=== PATIENT | male | born 1970 | race Caucasian/White ===

== ENCOUNTER 2017-03-19 21:06 | Emergency (ER) | payer OTHER, SELFPAY ==
[2017-03-19] MEDS ORDERED: Sodium Chloride 0.9% 1,000 ML ONE ×2 (21:49→22:30)
[2017-03-19] MEDS ORDERED: Ondansetron HCl/PF 4 MG/2 ML Vial ONE (21:49)
[2017-03-19 22:01] LABS: #Basophils 0.1 thou/uL (0.0-0.2); #Lymphocytes 1.4 thou/uL (1.20-3.40); #Monocytes 0.9 thou/uL (0.11-0.59); #Neutrophils 11.9 thou/uL (1.40-6.50); %Basophils 0.6 % (0.0-1.0); %Eosinophils 0.2 % (0.0-10.0); %Lymphocytes 9.9 % (21.0-51.0); %Monocytes 6.4 % (0.0-10.0); %Neutrophils 82.9 % (42.0-75.0); Hemoglobin 15.5 g/dL (14.0-18.0); Mean Corpuscular HGB CONC 36.5 g/dL (32.0-36.0); Mean Platelet Volume 6.3 fL (7.4-10.4); Platelet Count 274 thou/uL (130-400); RBC Distribution Width 10.7 % (11.5-14.5); Red Blood Cell (RBC) Count 5.01 mill/uL (4.70-6.10); White Blood Cell (WBC) Count 14.3 thou/uL (4.8-10.8)
[2017-03-19 22:03] LABS: ALT (SGPT) 136 U/L (8-55); AST (SGOT) 135 U/L (5-34); Albumin 4.2 g/dL (3.5-5.0); Alkaline Phosphatase 84 U/L (40-150); Anion Gap 21 mmol/L (10-20); BUN (Urea Nitrogen) 5 mg/dL (8.9-20.6); Bilirubin, Total 0.7 mg/dL (0.2-1.2); CK (CPK) 439 U/L (30-200); Calc. Creatinine Clearance 0 mL/min (70-130); Calcium 8.5 mg/dL (7.8-10.44); Carbon Dioxide 23 mmol/L (22-29); Estimated GFR-MDRD Greater than 90; Globulin 3.1 g/dL (2.4-3.5); Glucose 101 mg/dL (70-105); Magnesium 2.1 mg/dL (1.6-2.6); Protein, Total 7.3 g/dL (6.0-8.3)
[2017-03-19 22:04] LABS: Acetaminophen Less than 6.0 mcg/mL (10.0-30.0); Alcohol 170 mg/dL (Less than 10); Salicylate Less than 8.0 mg/dL (15.0-30.0)
[2017-03-19 22:06] LABS: Troponin I 0.015 ng/mL (< 0.028)
[2017-03-19 22:20] LABS: CKMB 9.5 ng/mL (0-6.6); Chloride 67 mmol/L (98-107); Potassium 2.8 mmol/L (3.5-5.1); Sodium 108 mmol/L (136-145)
[2017-03-19] MEDS ORDERED: Potassium Chloride 20 MEQ TAB ONE (22:30)
[2017-03-19 22:42] LABS: Bilirubin Negative (Negative); Blood, Urine Trace (Negative); Clarity Clear (Clear); Glucose, Urine (Dipstick) Negative (Negative); Leukocyte Negative (Negative); Nitrite Negative (Negative); Protein, Urine (Dipstick) Negative (Neg-Trace); Specific Gravity, Urine 1.015 (1.005-1.030); Urobilinogen 0.2 mg/dL (0.2-1.0)
[2017-03-19] MEDS ORDERED: Potassium Chloride 20 MEQ/100 ML PREMIX BAG ONE (22:46)
[2017-03-19 22:48] LABS: Bacteria/HPF None Seen HPF (None Seen); RBC/HPF 0-3 HPF (0-3); Squamous Epithelial None Seen HPF (0-3); WBC/HPF None Seen HPF (0-3)
[2017-03-19 22:50] LABS: Amphetamine Not Detected (NotDetected); Barbiturates Screen Not Detected (NotDetected); Benzodiazepine Screen Not Detected (NotDetected); Cocaine Metabolite Screen Not Detected (NotDetected); Medtox Control Line Valid? VALID (VALID); Methadone Not Detected (NotDetected); Methamphetamine Not Detected (NotDetected); Opiate Screen Not Detected (NotDetected); Oxycodone Screen Not Detected (NotDetected); Phencyclidine (PCP) Not Detected (NotDetected); THC/Cannabinoid Screen Not Detected (NotDetected); Tricyclic Screen Not Detected (NotDetected)
== END 2017-03-19 23:54 | disposition short-term general hospital (02) ==
LOC: NAV ERS 21:06
DX: E87.1 Hypo-osmolality and hyponatremia (principal); I10 Essential (primary) hypertension; F32.9 Major depressive disorder, single episode, unspecified; F17.210 Nicotine dependence, cigarettes, uncomplicated; E87.6 Hypokalemia; Z79.899 Other long term (current) drug therapy
CPT/HCPCS: 36415; 80053; 80306; 80307; 81003; 81015; 82550; 82553; 83735; 84100; 84484; 85025; 93005; 96361; 96365; 96375; J2405; J3480; J7050

== ENCOUNTER 2017-08-05 15:10 | Outpatient (CLI) | payer OTHER ==
--- NOTE | 2017-08-05 18:10 | RAD ---
RIGHT KNEE: 08/05/17 Two views. HISTORY: Right knee pain. There are mild degenerative changes noted. There is slight loss of the medial joint space. Mild spurr ing from the condyles and posterior patella. Small joint effusion not excluded. No fracture or acute abnormality. IMPRESSION: Mild degenerative changes as described. POS: [facility]
== END 2017-08-05 15:11 | disposition home or self-care (01) ==
LOC: NAV RAD 15:10
PROVIDERS: ATTEND Nurse Practitioner Family
DX: M25.561 Pain in right knee (principal)

== ENCOUNTER 2018-09-06 21:48 | Emergency (ER) | payer OTHER, SELFPAY ==
[2018-09-06 22:31] LABS: #Basophils 0.2 thou/uL (0.0-0.2); #Eosinphils 0.1 thou/uL (0.0-0.7); #Lymphocytes 2.2 thou/uL (1.20-3.40); #Monocytes 0.7 thou/uL (0.11-0.59); #Neutrophils 9.1 thou/uL (1.40-6.50); %Basophils 1.2 % (0.0-1.0); %Eosinophils 0.6 % (0.0-10.0); %Lymphocytes 17.9 % (21.0-51.0); %Neutrophils 74.2 % (42.0-75.0); Hemoglobin 16.7 g/dL (14.0-18.0); Mean Corpuscular HGB CONC 32.5 g/dL (32.0-36.0); Mean Corpuscular Hemoglobin 29.4 pg (27.0-31.0); Mean Corpuscular Volume 90.4 fL (78.0-98.0); Mean Platelet Volume 5.4 fL (7.4-10.4); Platelet Count 404 thou/uL (130-400); RBC Distribution Width 13.4 % (11.5-14.5); Red Blood Cell (RBC) Count 5.66 mill/uL (4.70-6.10); White Blood Cell (WBC) Count 12.3 thou/uL (4.8-10.8)
[2018-09-06] MEDS ORDERED: Pantoprazole 40 MG VIAL ONE (22:37)
[2018-09-06] MEDS ORDERED: Sodium Chloride 0.9% 1,000 ML ONE (22:37)
[2018-09-06] MEDS ORDERED: cloNIDine 0.1 MG TAB ONE (22:37)
[2018-09-06 22:46] LABS: Acetaminophen Less than 6.0 mcg/mL (10.0-30.0); Alcohol 194 mg/dL (Less than 10); Salicylate Less than 8.0 mg/dL (15.0-30.0)
[2018-09-06 22:48] LABS: ALT (SGPT) 41 U/L (8-55); AST (SGOT) 55 U/L (5-34); Albumin 4.2 g/dL (3.5-5.0); Alkaline Phosphatase 77 U/L (40-150); BUN (Urea Nitrogen) 13 mg/dL (8.9-20.6); Bilirubin, Total 0.2 mg/dL (0.2-1.2); CK (CPK) 403 U/L (30-200); Calc. Creatinine Clearance 0 mL/min (70-130); Calcium 9.8 mg/dL (7.8-10.44); Carbon Dioxide 25 mmol/L (22-29); Chloride 103 mmol/L (98-107); Estimated GFR-MDRD Greater than 90; Glucose 123 mg/dL (70-105); Protein, Total 7.2 g/dL (6.0-8.3); Sodium 142 mmol/L (136-145)
[2018-09-06] MEDS ORDERED: Dextrose 5 %-0.45 % NaCl 1,000 ML ONE (23:00)
[2018-09-06] MEDS ORDERED: Multivit, Adult Inj 10 ML VIAL ONE (23:00)
[2018-09-06] MEDS ORDERED: Thiamine HCl 200 MG/2 ML VIAL ONE (23:00)
[2018-09-06 23:01] LABS: Potassium 3.8 mmol/L (3.5-5.1)
[2018-09-06] MEDS ORDERED: Metoprolol Tartrate 50 MG TAB ONE (23:09)
[2018-09-06] MEDS ORDERED: Losartan Potassium 50 MG TAB ONE (23:09)
[2018-09-06 23:10] LABS: Anion Gap 18 mmol/L (10-20)
[2018-09-06] MEDS ORDERED: Pantoprazole 40 MG VIAL IVP SCH (23:15)
[2018-09-06] MEDS ORDERED: cloNIDine 0.1 MG TAB PO SCH (23:15)
[2018-09-06] MEDS ORDERED: Sodium Chloride 0.9% 1,000 ML IV SCH (23:15)
[2018-09-06] MEDS ORDERED: Multivitamins, Adult 10 ML, Thiamine HCl 100 MG, Folic Acid 1 MG in Dextrose 5 %-0.45 %... IV ONE (23:15)
[2018-09-06] MEDS ORDERED: chlordiazePOXIDE HCl 25 MG CAP ONE (23:43)
== END 2018-09-06 23:48 | disposition home or self-care (01) ==
LOC: NAV ERS 21:48
DX: F10.129 Alcohol abuse with intoxication, unspecified (principal); I10 Essential (primary) hypertension; F41.9 Anxiety disorder, unspecified; F32.9 Major depressive disorder, single episode, unspecified; Z79.899 Other long term (current) drug therapy
CPT/HCPCS: 80053; 80307; 82550; 85025; 93005; 96361; 96365; 96375; C9113; J3411; J7042; J7050